=== PATIENT | male | born 1965 | race Caucasian/White ===

== ENCOUNTER 2018-04-18 11:46 | Emergency (ER) | payer OTHER ==
[2018-04-18 11:55] VITALS: TEMP 98.8
--- NOTE | 2018-04-18 12:07 | ED.PDOC ---
History of Present Illness - General Chief Complaint: Cardiovascular Problem Stated Complaint: chest discomfort,heart racing Time Seen by Provider: 04/18/18 12:01 Source: patient, family Exam Limitations: no limitations - History of Present Illness Initial Comments: patient comes in today with several symptoms concerning for cardiac etiology. Patient states about 7 years ago he had an episode of atrial fibrillation. At that time what he felt was a funny sensation in his chest and tingling on the left side of his head. Patient stated that this morning that he felt the same. Patient states he felt like his heart was jumping out of his chest with tingling of his left arm and tingling of his head especially on the left side posterior area. Patient stated he felt stated he felt a little bit fuzzy in the head and just not quite well. He has some nausea but no emesis and no diaphoresis. Patient has had multiple episodes like this in the past and been seen in the emergency room or hospitalized overnight for this with normal workup. He has never had an angiogram but did get sent home with an event monitor several times without being able to capture an event. The last episode was 2 months ago. 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 Harris from cardiology for this. He has had a murmur for as long as he can remember. His last attempt a stress test failed because he did not know to hold his blood pressure medications so his heart rate did not increase to the level needed. Patient denies any chest pain and the symptoms have pretty much resolved at this time with the exception of the tingling in his head. Patient has no altered LOC, vision change, aphagia, change sensation to his upper or lower extremities. Timing/Duration: 1/2 hour Severity: moderate Location: substernal, back Activities at Onset: rest Prior Chest Pain/Cardiac Workup: other - see HPI Improving Factors: nothing Worsening Factors: nothing Nitro Today/Relief: no nitro taken today Aspirin Treatment Today: 325 mg x 1, provided at home Associated Symptoms: nausea/vomiting, other Allergies/Adverse Reactions: Allergies Penicillins Allergy (Verified 04/18/18 11:55) Home Medications: Ambulatory Orders Aspirin [(None)] 325 mg PO QD 04/18/18 Diltiazem HCl Coated Beads [Cartia Xt] 180 mg PO DAILY 04/18/18 Potassium Chloride PRN 04/18/18 Review of Systems - Review of Systems Constitutional: States: no symptoms reported. Denies: chills, diaphoresis, fever EENTM: States: no symptoms reported. Denies: blurred vision, ear pain, nose pain, throat pain Respiratory: States: no symptoms reported. Denies: cough, short of breath, wheezing Cardiology: States: see HPI, edema, palpitations. Denies: chest pain Gastrointestinal/Abdominal: States: no symptoms reported, nausea. Denies: abdominal pain, diarrhea, vomiting Genitourinary: States: no symptoms reported Musculoskeletal: States: no symptoms reported Skin: States: no symptoms reported Neurological: States: see HPI Past Medical History (General) - Patient Medical History Hx Stroke: No Hx Cardiac Disorders: Yes - Atrial fib,Leaky valve Hx Hypertension: Yes Hx Diabetes: No Surgical History: appendectomy - Vaccination History Hx Influenza Vaccination: Yes Hx Pneumococcal Vaccination: Yes - Social History Hx Tobacco Use: Yes Family Medical History - Family History Father Family History: Unknown Living Status: Unknown Physical Exam - Physical Exam General Appearance: Alert, Anxious, No apparent distress Eyes, Ears, Nose, Throat Exam: PERRL/EOMI, normal ENT inspection, TMs normal, pharynx normal Neck: non-tender, full range of motion, supple, normal inspection Respiratory: chest non-tender, lungs clear, normal breath sounds, no respiratory distress Cardiovascular/Chest: normal peripheral pulses, regular rate, rhythm, no edema, no gallop, systolic murmur Peripheral Pulses: radial,right: 2+, radial,left: 2+ Gastrointestinal/Abdominal: normal bowel sounds, non tender, soft Extremity: normal range of motion, non-tender, normal inspection 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, no motor/sensory deficits, alert, normal mood/affect Skin Exam: normal color Progress - Results/Orders Results/Orders: 04/18/18 12:05 CARDIAC PANEL,ER Stat THYROID STIMULATING HORMONE Stat 04/18/18 12:15 EKG STAT Laboratory Results WBC 10.9 K/mm3 (4.8-10.8) H 04/18/18 12:05 RBC 5.70 M/mm3 (4.70-6.10) 04/18/18 12:05 Hgb 17.5 gm/dL (14.0-18.0) 04/18/18 12:05 Hct 51.6 % (42.0-52.0) 04/18/18 12:05 MCV 90.6 fl (80.0-94.0) 04/18/18 12:05 MCH 30.8 pg (27.0-31.0) 04/18/18 12:05 MCHC 34.0 g/dL (33.0-37.0) 04/18/18 12:05 RDW 13.2 % (11.5-14.5) 04/18/18 12:05 Plt Count 379 K/mm3 (130-400) 04/18/18 12:05 MPV 7.0 fl (7.40-10.4) L 04/18/18 12:05 Absolute Neuts (auto) 8.80 K/uL (1.8-6.8) H 04/18/18 12:05 Absolute Lymphs (auto) 1.20 K/uL (1.0-3.4) 04/18/18 12:05 Absolute Monos (auto) 0.80 K/uL (0.2-0.8) 04/18/18 12:05 Absolute Eos (auto) 0.00 K/uL (0.0-0.4) 04/18/18 12:05 Absolute Basos (auto) 0.10 K/uL (0.0-0.1) 04/18/18 12:05 Neutrophils % 80.7 % (42.0-78.0) H 04/18/18 12:05 Lymphocytes % 11.0 % (20.0-50.0) L 04/18/18 12:05 Monocytes % 7.4 % (2.0-9.0) 04/18/18 12:05 Eosinophils % 0.0 % (1.0-5.0) L 04/18/18 12:05 Basophils % 0.9 % (0.0-2.0) 04/18/18 12:05 PT 8.9 SECONDS (9.0-10.9) L 04/18/18 12:05 INR 0.89 (0.9-1.15) L 04/18/18 12:05 PTT (SP) 24.5 SECONDS (21.8-31.6) 04/18/18 12:05 Sodium 136 mmol/L (135-145) 04/18/18 12:05 Potassium 4.4 mmol/L (3.6-5.0) 04/18/18 12:05 Chloride 100 mmol/L (101-111) L 04/18/18 12:05 Carbon Dioxide 22 mmol/L (21-31) 04/18/18 12:05 Anion Gap 18.4 (12-18) H 04/18/18 12:05 BUN 18 mg/dL (7-18) 04/18/18 12:05 Creatinine 0.94 mg/dL (0.6-1.3) 04/18/18 12:05 BUN/Creatinine Ratio 19.1 (10-20) 04/18/18 12:05 Random Glucose 90 mg/dL (70-105) 04/18/18 12:05 Serum Osmolality 273.4 mOsm/L (275-295) L 04/18/18 12:05 Calcium 9.9 mg/dL (8.4-10.2) 04/18/18 12:05 Magnesium 2.4 mg/dL (1.8-2.5) 04/18/18 12:05 Creatine Kinase 298 IU/L (38-174) H* 04/18/18 12:05 CK-MB (CK-2) 2.4 ng/mL (0.0-4.4) 04/18/18 12:05 Troponin I 0.02 ng/mL (0.01-0.05) 04/18/18 12:05 TSH 0.32 uIU/mL (0.34-5.60) L 04/18/18 12:05 patient has had no symptoms since arrival. 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 Departure - Departure Clinical Impression: Concern about cardiovascular disease without diagnosis Disposition: Discharge to Home or Self Care Condition: Good Departure Forms: ED Discharge - Pt. Copy, Patient Portal Self Enrollment Instructions: DI for Chest Pain Home Medications: Ambulatory Orders Aspirin [(None)] 325 mg PO QD 04/18/18 Diltiazem HCl Coated Beads [Cartia Xt] 180 mg PO DAILY 04/18/18 Potassium Chloride PRN 04/18/18 Additional Instructions: call Cardiology in am to discuss if further monitoring is needed. Return to ER for palpitations, chest pain, dizziness.
[2018-04-18 13:16] VITALS: BP 140/73; O2SAT 96
== END 2018-04-18 13:18 | disposition home or self-care (01) ==
LOC: ER 11:46
DX: R07.2 Precordial pain (principal); R00.2 Palpitations; R20.8 Other disturbances of skin sensation; R11.2 Nausea with vomiting, unspecified; I48.91 Unspecified atrial fibrillation; I10 Essential (primary) hypertension; Z79.82 Long term (current) use of aspirin; Z79.899 Other long term (current) drug therapy